=== PATIENT | male | born 1945 | race Caucasian/White ===

== ENCOUNTER 2020-08-29 01:14 | Outpatient (CLI) | payer MEDICARE, MEDICAID, SELFPAY ==
[2020-08-29 19:18] LABS: SARS-CoV-2 RNA PCR Negative
== END 2020-08-29 01:15 | disposition home or self-care (01) ==
LOC: ANHCOVIDDT 01:15
PROVIDERS: Visit Provider Specialist
DX: Z01.812 Encounter for preprocedural laboratory examination (principal); Z20.822 Contact with and (suspected) exposure to COVID-19
CPT/HCPCS: C9803; U0003; U0005

== ENCOUNTER 2020-09-01 00:26 | Day surgery (SDC) | payer MEDICARE, MEDICAID, SELFPAY ==
--- NOTE | 2020-09-01 12:50 | SUR.PREOP ---
ARRIVES AMBULATORY TO [facility] 4 W/ AID OF CANE W/ NEPHEW/JUDY SMITH, AT SIDE FOR SCHEDULED PPM GENERATOR CHANGE OUT W/ DR. DEE. PT. IS VERY [place]. DENIES PAIN OR SOB ON ARRIVAL. ORIENTED TO ROOM, PLAN OF CARE, PROCEDURE. PPM LOCATED LEFT UPPER CHEST. IV STARTED, LABS DRAWN AND SENT, VS OBTAINED, CONSENT SIGNED, SKIN PREP COMPLETED. WILL CONTINUE TO MONITOR.
[2020-09-01 13:29] LABS: Basophils Absolute Auto 0.1 K/mm3 (0.0-0.1); Basophils Percent Auto 0.7 % (0.2-1.2); Eosinophils Percent Auto 0.2 % (0-4.4); Hematocrit 44.1 % (42.0-52.0); Hemoglobin 14.9 g/dL (14.0-18.0); Immature Granulocyte Absolute 0.02 K/mm3 (0.00-0.031); Immature Granulocyte Percent A 0.2 % (0-0.5); Lymphocytes Absolute Auto 1.99 K/mm3 (0.9-3.2); Lymphocytes Percent Auto 21.9 % (18.3-44.2); Mean Corpuscular HGB Conc 33.8 g/dl (32-36); Mean Corpuscular Hemoglobin 30.2 pg (26-34); Mean Corpuscular Volume 89.3 fl (80-100); Mean Platelet Volume 10.1 fl (7.4-10.4); Monocytes Absolute Auto 0.8 K/mm3 (0.1-0.6); Neutrophils Absolute Auto 6.2 K/mm3 (1.3-6.7); Platelet Count Result 226 k/mm3 (150-375); Red Blood Count 4.94 M/mm3 (4.6-6.20); Red Cell Distribution Width 13.2 % (11.5-14.5); White Blood Count 9.1 K/mm3 (4.5-10.0)
[2020-09-01 13:30] VITALS: BP 137/70; PULSE 62; RESP 14; TEMP 36.9; O2SAT 100; BMI 34.2
[2020-09-01 13:39] LABS: Prothrombin Time 13.5 Seconds (11.1-14.7)
[2020-09-01 13:40] LABS: Anion Gap 7 mmol/L (8-16); Blood Urea Nitrogen 23 mg/dL (9-20); Calcium 9.2 mg/dL (8.4-10.2); Carbon Dioxide 29 mmol/L (22-30); Chloride 103 mmol/L (98-107); Estimated CRCL calculation 53 ml/min; Estimated Glomerular Filt Rate 59; Glucose 107 mg/dL (75-110); Potassium 5.1 mmol/L (3.4-5.0); Sodium 139 mmol/L (137-145)
--- NOTE | 2020-09-01 14:20 | P.HP_ITS ---
H&P: HPI History of Present Illness Date/Time: 09/01/20 14:20 Chief complaint is weakness Chief Complaint: Weakness Narrative: Alf Gonsalez Jr. is a 75 years old gentleman with history of pacemaker placement, due to sick sinus syndrome was seen for follow-up noted to have pacemaker at end of life was scheduled for elective generator change Meds Home Medications and Allergies Home Medications Medication Instructions Recorded Confirmed Type ascorbic acid (vitamin C) 500 mg PO DAILY 09/01/20 09/01/20 History aspirin 325 mg PO DAILY 09/01/20 09/01/20 History atorvastatin 20 mg PO DAILY 09/01/20 09/01/20 History escitalopram oxalate 10 mg PO DAILY 09/01/20 09/01/20 History hydralazine 25 mg PO BID 09/01/20 09/01/20 History metoprolol tartrate 50 mg PO Q12H 09/01/20 09/01/20 History nitroglycerin 0.4 mg SUBLINGUAL Q5-15M PRN 09/01/20 09/01/20 History omega-3 fatty acids-vitamin E 1 cap PO DAILY 09/01/20 09/01/20 History [Fish Oil] spironolactone 25 mg PO DAILY 09/01/20 09/01/20 History tolterodine 4 mg PO DAILY 09/01/20 09/01/20 History Allergies Allergy/AdvReac Type Severity Reaction Status Date / Time No Known Allergies Allergy Verified 09/01/20 13:30 Vital Signs Vital Signs - 24 hr 09/01/20 13:30 Temperature 36.9 C Pulse Rate 62 Respiratory Rate 14 Blood Pressure 137/70 Pulse Oximetry 100 Exam Narrative: Exam Narrative: Awake alert oriented x3 not in acute distress Neck is supple no obvious JVD, no carotid bruit Chest: Good air entry bilaterally, lungs are clear to auscultation and percussion bilaterally Cardiovascular: Regular rate and rhythm, 2/6 systolic murmur noted left sternal border Abdomen: Soft nontender bowel sounds positive Extremities: No edema has good pulses distally bilaterally H&P: Results Labs Labs: Short CBC 09/01/20 Range/Units 13:13 WBC 9.1 (4.5-10.0) K/mm3 Hgb 14.9 (14.0-18.0) g/dL Hct 44.1 (42.0-52.0) % Plt Count 226 (150-375) k/mm3 [facility] 09/01/20 13:13 Sodium 139 Potassium 5.1 H Chloride 103 Carbon Dioxide 29 BUN 23 H Creatinine 1.20 Glucose 107 Calcium 9.2 Assessment and Plan Assessment and plan (1) Pacemaker battery depletion: Code(s): Z45.010 - Encounter for checking and testing of cardiac pacemaker pulse generator [battery] Status: Acute Additional Plan Has pacemaker with battery at end of life, will arrange for generator change, the procedure was discussed with the patient as well as his family at the bedside, risks, benefits were explained, he agreed with the procedure
--- NOTE | 2020-09-01 15:08 | P.PCNCC_ITS ---
Cardiac Cath Procedure Note Date of procedure:: 09/01/20 Performing physician:: Adeel Del Real MD PROCEDURE: 1. Pacemaker dual-chamber generator change 2. Pocket revision 3. Conscious sedation starting time is 2:40 a.m., ending time is 3:00 receiving 1 mg of Versed 25 mcg fentanyl History: 75-year-old gentleman with history of pacemaker for sick sinus syndrome noted to have pacemaker at end of life, was brought to the supervisor cytogenetic laboratory for elective replacement of the generator Technique:After obtaining informed consent, the patient was premedicated and transferred to the Cardiac Police Specialist. The upper chest was prepped and draped in sterile fashion. Next, 1% xylocaine was used to create an area of local anesthesia in the second and third intercostal space. An incision was made over the old incision line. Blunt and sharp dissections were used to expose the existing pacemaker and leads. The electrodes were disconnected from the old pulse generator , and the new generator was installed and the leads were connected to the new generator, and measurements were performed. Atrial measurements were: Voltage threshold: 0.5 Volts at 0.5 msec Lead impedance: 430 ohms P wave amplitude: 2.5 mV Right Ventricular measurements were: Voltage threshold: 0.75 Volts at 0.5msec Lead impedance: 510 ohms the new generator was inserted into revised pocket, after the area was irrigated with antibiotics. The subcutaneous tissue was closed using 2.0 Vicryl, and the skin was closed with kevin. The wound was covered with gauze bandage and adhesive tape were placed. Next the temporary pacing wired was then removed. The patient tolerated the procedure well with minimal blood loss. The patient will return in 1 week for a wound check. The patient tolerated procedure well with no complication, and was taken from the supervisor cytogenetic laboratory his room in stable condition stable vital signs
--- NOTE | 2020-09-01 15:15 | SUR.PHASEII ---
RETURNS TO [facility] 4 S/P PPM GENERATOR CHANGE W/ [facility]. AWAKE AND ALERT. DENIES PAIN OR SOB. AQUACELL DRESSING C/D/I TO LEFT UPPER CHEST. SITE WITHOUT REDNESS, EDEMA, OR DRAINAGE. L. RADIAL PULSE STRONG. L. HAND SENSATION, MOVEMENT WNL. REVIEWED ACTIVITY RESTRICTIONS POST PROCEDURE AND CARE OF L. CHEST SITE. VSS. NEPHEW TO BEDSIDE. [facility] REP GAVE BEDSIDE MONITOR AND EXPLAINED USE. WILL CONTINUE TO MONITOR.
[2020-09-01 15:20] VITALS: BP 133/73; PULSE 63; RESP 16; TEMP 36.7; O2SAT 95
[2020-09-01 15:35] VITALS: BP 113/81; PULSE 66; RESP 16; O2SAT 97
[2020-09-01 15:50] VITALS: BP 123/80; PULSE 62; RESP 16; O2SAT 94
[2020-09-01 16:05] VITALS: BP 125/72; PULSE 69; RESP 16; O2SAT 96
[2020-09-01 16:20] VITALS: BP 130/71; PULSE 65; RESP 16
--- NOTE | 2020-09-01 16:30 | SUR.PHASEII ---
NO NEW CHANGES. VSS. L. CHEST W/ PRESSURE DRESSING APPLIED OVER C/D/I AQUACELL DRESSING AT 1550 ORDERED. SITE WITHOUT EDEMA OR BLEEDING OR DRAINAGE. BEDREST POST PROCEDURE COMPLETE. IV SITE DISCONTINUED INTACT AND SITE DRESSED. DRESSING FOR DISCHARGE HOME.
--- NOTE | 2020-09-01 16:50 | SUR.PHASEII ---
REVIEWED ALL DISCHARGE INSTRUCTIONS, MEDS AND FOLLOW UP CARE W/ PT. AND HIS NEPHEWJUDY HCPOA. QUESTIONS ANSWERED AND BOTH VOICED UNDERSTANDING OF ALL. PACKET GIVEN. DISCHARGED HOME, OUT VIA WC WITH ALL PERSONAL BELONGINGS, CANE, BEDSIDE MONITOR AND DISCHARGE PACKET TO [facility], WAITING CAR. VOICES NO C/O. NO DISTRESS NOTED.
== END 2020-09-01 16:50 | disposition home or self-care (01) ==
PROVIDERS: PCP Physician Assistant; Visit Provider Specialist
PROC: 0JPT0PZ Removal of Cardiac Rhythm Related Device from Trunk Subcutaneous Tissue and Fascia, Open Approach (ICD-10-PCS; CPT 33228; principal; 2020-09-01 14:00)
DX: Z45.010 Encounter for checking and testing of cardiac pacemaker pulse generator [battery] (principal); Z79.82 Long term (current) use of aspirin; I49.5 Sick sinus syndrome
CPT/HCPCS: 33228; 36415; 80048; 85025; 85610; C1785; J0690; J2250; J3010; J7040